=== PATIENT | female | born 1945 | race Caucasian/White ===

== ENCOUNTER 2022-12-27 14:03 | Outpatient (RCR) | payer MEDICARE, SELFPAY | END 2023-01-19 13:28 | disposition home or self-care (01) | LOC: PT 14:03 | PROVIDERS: Visit Provider Family Medicine | DX: S82.65XD Nondisplaced fracture of lateral malleolus of left fibula, subsequent encounter for closed fracture with routine healing (principal); Z98.890 Other specified postprocedural states | CPT/HCPCS: 97110; 97113; 97140; 97163 ==

== ENCOUNTER 2024-01-16 19:04 | Outpatient (REF) | payer MEDICARE, SELFPAY ==
[2024-01-20 13:07] LABS: Age Gdln ACOG Testing Note (.); Pap IG (Image Guided) Note (.)
== END 2024-01-16 19:05 | disposition home or self-care (01) ==
LOC: LAB 19:04
PROVIDERS: Visit Provider Obstetrics & Gynecology
DX: Z01.419 Encounter for gynecological examination (general) (routine) without abnormal findings (principal)
CPT/HCPCS: 88175

== ENCOUNTER 2024-04-23 13:01 | Outpatient (RCR) | payer MEDICARE, SELFPAY | END 2024-07-16 19:00 | disposition home or self-care (01) | LOC: PT 13:01 | PROVIDERS: PCP Nurse Practitioner; Visit Provider Nurse Practitioner | DX: G62.9 Polyneuropathy, unspecified (principal); Z91.81 History of falling | CPT/HCPCS: 97110; 97112; 97140; 97163 ==

== ENCOUNTER 2024-05-22 12:53 | Outpatient (OUT) | payer MEDICARE, SELFPAY ==
--- NOTE | 2024-05-22 12:56 | MM_ITS ---
Patient Name: LUIS MCNEAL MR#: [id number] : 1945 Exam Date: 05/22/2024 Ordering Doctor: SHAY VELIZ . RADIOLOGY REPORT PROCEDURE: MM TOMOSYNTHESIS SCREENING BI COMPARISON: MG MAMM SCREEN KAYLEEN W CAD, 08/20/2019. MG MAMM SCREEN 3D KAYLEEN CAD, 10/20/2022. INDICATIONS: Screening Calculator Name NCI Breast Cancer Risk Assessment Tool 5 Year Breast Cancer Risk 1.40% Lifetime Breast Cancer Risk 2.80% Personal Breast Cancer No Personal Ovarian Cancer No Treatments None Family Cancers Mother with lung cancer at age 77; Father with lung cancer at age 48. LOCATION: [facility] BREAST COMPOSITION: There are scattered areas of fibroglandular density. FINDINGS: DIAGNOSTIC CATEGORY 2--BENIGN FINDING. NO CHANGE FROM COMPARISON. Scattered benign-appearing calcifications are present. Scattered benign-appearing lymph nodes are present. RIGHT BREAST: No significant suspicious finding. LEFT BREAST: No significant suspicious finding. RECOMMENDATIONS: ROUTINE MAMMOGRAM AND CLINICAL EVALUATION IN 12 MONTHS. PLEASE NOTE: A NORMAL MAMMOGRAM DOES NOT EXCLUDE THE POSSIBILITY OF BREAST CANCER. A CLINICALLY SUSPICIOUS PALPABLE LUMP SHOULD BE BIOPSIED. Dictated by: Alexx Tran MD on 05/22/2024 at 15:02 Approved by: Alexx Tran MD on 05/22/2024 at 15:04
== END 2024-05-22 12:54 | disposition home or self-care (01) ==
LOC: MAMMO 12:53
PROVIDERS: PCP Nurse Practitioner; Visit Provider Nurse Practitioner
DX: Z12.31 Encounter for screening mammogram for malignant neoplasm of breast (principal); Z80.0 Family history of malignant neoplasm of digestive organs
CPT/HCPCS: 77063; 77067

== ENCOUNTER 2024-05-22 13:00 | Outpatient (OUT) | payer MEDICARE, SELFPAY ==
--- NOTE | 2024-05-22 13:13 | XR_ITS ---
The [address] [address] Patient Name: LUIS MCNEAL MRN: [id number] date: 1945 Sex: F Assigned Patient Location: [facility] Current Patient Location: [facility] Accession/Order Number: [id number] Exam Date: 05/22/2024 13:21 Report Date: 05/24/2024 12:56 At the request of: SHAY VELIZ Procedure: XR knee LT 4V PROCEDURE: XR hip LT min 2V, XR knee LT 4V HISTORY: Left Hip Pain COMPARISON: None. FINDINGS: BONES:Minimal narrowing of the joint space. No fracture, dislocation, articular surface irregularity. No significant periarticular degenerative osteophytes. SOFT TISSUES:No visible soft tissue swelling. EFFUSION:None visible. OTHER: Negative. XR/XR knee LT 4V IMPRESSION: 1. No acute bone abnormality or significant degenerative joint disease. 2. Minimal degenerative joint disease, especially considering patient's age. Electronically authenticated by: CRIS ALONZO Date: 05/24/2024 12:56
--- NOTE | 2024-05-22 13:13 | XR_ITS ---
The [place] [id number] Patient Name: LUIS MCNEAL MRN: [id number] date: 1945 Sex: F Assigned Patient Location: [facility] Current Patient Location: [facility] Accession/Order Number: [id number] Exam Date: 05/22/2024 13:21 Report Date: 05/24/2024 12:56 At the request of: SHAY VELIZ Procedure: XR hip LT min 2V PROCEDURE: XR hip LT min 2V, XR knee LT 4V HISTORY: Left Hip Pain COMPARISON: None. FINDINGS: BONES:Minimal narrowing of the joint space. No fracture, dislocation, articular surface irregularity. No significant periarticular degenerative osteophytes. SOFT TISSUES:No visible soft tissue swelling. EFFUSION:None visible. OTHER: Negative. XR/XR hip LT min 2V IMPRESSION: 1. No acute bone abnormality or significant degenerative joint disease. 2. Minimal degenerative joint disease, especially considering patient's age. Electronically authenticated by: CRIS ALONZO Date: 05/24/2024 12:56
== END 2024-05-22 13:01 | disposition home or self-care (01) ==
LOC: RAD 13:01
PROVIDERS: PCP Nurse Practitioner; Visit Provider Nurse Practitioner
DX: Z12.31 Encounter for screening mammogram for malignant neoplasm of breast (principal); Z80.0 Family history of malignant neoplasm of digestive organs; M25.552 Pain in left hip; M25.562 Pain in left knee; Z91.81 History of falling
CPT/HCPCS: 73502; 73564; 77063; 77067

== ENCOUNTER 2024-07-17 11:15 | Outpatient (RCR) | payer MEDICARE, SELFPAY | END 2024-07-18 13:13 | disposition home or self-care (01) | LOC: PT 11:15 | PROVIDERS: PCP Nurse Practitioner; Visit Provider Nurse Practitioner | DX: G62.9 Polyneuropathy, unspecified (principal); Z91.81 History of falling ==

== ENCOUNTER 2024-11-25 16:21 | Outpatient (OUT) | payer MEDICARE, SELFPAY ==
--- NOTE | 2024-11-25 | XR_ITS ---
[place] [address] Patient Name: LUIS MCNEAL MRN: [id number] date: 1945 Sex: F Assigned Patient Location: [facility] Current Patient Location: [facility] Accession/Order Number: [id number] Exam Date: 11/25/2024 17:01 Report Date: 11/25/2024 17:03 At the request of: SHAY VELIZ Procedure: XR chest 2V Plain film chest 2 view HISTORY: Cough and wheezing for one week COMPARISON: 05/28/2018 FINDINGS: SUPPORT DEVICES: None POSTSURGICAL CHANGES: None HEART: Within normal limits PULMONARY KATHRIN: Within normal limits MEDIASTINUM: Unremarkable LUNGS AND PLEURA: No acute lung process, pleural effusion or pneumothorax identified. BONY STRUCTURES: Mild scoliosis ADDITIONAL FINDINGS None XR/XR chest 2V IMPRESSION: No acute process. Impression dictated by: Rafal Cole M.D. 11/25/2024 5:03 PM Dictation Location: [email or web address] Electronically authenticated by: [id number] Y Date: 11/25/2024 17:03
== END 2024-11-25 16:22 | disposition home or self-care (01) ==
LOC: RAD 16:24
PROVIDERS: PCP Nurse Practitioner; Visit Provider Nurse Practitioner
DX: R06.2 Wheezing (principal); R05.9 Cough, unspecified
CPT/HCPCS: 71046

== ENCOUNTER 2025-07-07 14:31 | Outpatient (OUT) | payer MEDICARE, SELFPAY ==
--- OUTSIDE RECORDS SUMMARY | 2025-07-04 23:59 | XMS_ITS | Continuity of Care Document ---
Author Organization [facility] Address [address] [place] [id number] Care Team Providers Care Steel Turner Name Role Phone Anushka Delgado Primary Care Physician Encounter FT_JAIRO [id number] Date(s): 07/04/25 - 07/04/25 [facility] [address] [place] [phone]- Encounter Diagnosis BMI 24.0-24.9, adult(Discharge Diagnosis) - 07/04/25 Recurrent falls(Discharge Diagnosis) - 07/04/25 Head injury(Discharge Diagnosis) - 07/04/25 Impaired mobility(Discharge Diagnosis) - 07/04/25 Discharge Disposition: Home (Routine DC) Attending Physician: Anushka Rosales Encounter Type: Clinic Allergies, Adverse Reactions, Alerts SubstanceCriticalitySeverityReactionReaction SeverityStatusmorphineVomiting ActiveSeldaneUnknownActivesulfa drugsUnknownActive Treatment Plan Future Appointments Appointment Date:10/06/2025 10:40:00 AM Scheduled Provider:Anushka Rosales Location:[facility] Appointment Type: Open Appointment Date:04/08/2026 09:30:00 AM Scheduled Provider: Location:[facility] Appointment Type: Medicare Wellness Subsequent Functional Status 07/04/25 Symptomatic After Exposure to ContagionNoSymptomatic After Travel High-Risk Area NoDroplet, Contact Isolation VerificationN/AAirborne,Contact Isolation VerificationN/A Functional Status Assessment AssessmentAssessment ComponentResultEffective DateUnspecifed Functional Status AssessmentHistory of falling; immediate or within 3 months [Pratt Fall Scale]Yes 07/04/25Ambulatory aid [Pratt Fall Scale]Crutches, cane, vgulfe79/19/25 Functional Status Assessment AssessmentAssessment ComponentResultEffective DateUnspecifed Functional Status AssessmentHistory of falling; immediate or within 3 months [Rpatt Fall Scale]Yes 07/04/25Ambulatory aid [Pratt Fall Scale]Crutches, cane, tafpnl82/19/25 Immunizations Given and Recorded VaccineDateStatusRefusal ReasonRSV vaccine preF3, pmrcxoxmxrz06/1/24Recorded SARS-CoV-2 mRNA (tonavdeepnameran 5y-11y) vacRecordedinfluenza virus vaccine, inactivated04/11/24Recordedinfluenza virus vaccine, wlgnniykepl08/26/23Recorded influenza virus vaccine, khwtaxminch24/6/22Recordedpneumococcal 20-valent conjugate usgcpvk96/17/46TsjnrhxrNOOZ-LgA-7 (COVID-19) mRNAMUL.ORD![id number] TbyjuiceBHZH-CwU-0 (COVID-19) mRNA BNT-162b2 vax11/04/0664VcbvbyuvHDYX-UhC-1 (COVID-19) mRNA BNT-162b2 vax3/91PqncoxcjTIAH-EqH-2 (COVID-19) mRNA BNT-162b2 vax3Recorded Not Given VaccineDateStatusRefusal Reasoninfluenza virus vaccine, tfhqykrmwqx63/19/24Not GivenRefused by parent, guardian, or patient - reschedule 1Result Comment: covid 19 MRna LNp-S pfizer trus sucrose 2Result Comment: Britney wants to get immunization with spouse. Medications Albuterol (Eqv-ProAir HFA) 90 mcg/inh inhalation aerosol See Instructions, 8.5 EA, Refill(s) 0, INHALE 2 PUFFS EVERY 6 HOURS, [id number], 163, cm, 11/25/24 15:48:00 EDT, Height/Length Dosing, 70.4, kg, 11/25/24 15:48:00 EDT, Weight Dosing Start Date: 01/13/25 Status: Ordered Medication Dispense Status: Completed Quantity: 8.5 Unit: EA Total Allowed Fills: 1 Fills Dispensed: 0 alendronate 35 mg Tab See Instructions, TAKE 1 TABLET BY MOUTH EVERY 7 DAYS, # 12 tab(s), Refills(s) 3, Pharmacy: [facility], 163, cm, 04/07/25 10:27:00 EDT, Height/Length Dosing, 66.3, kg, 04/07/25 10:27:00 EDT,Weight Dosing Start Date: 06/09/25 Status: Ordered Medication Dispense Status: Completed Quantity: 12.0 Unit: tab(s) Total Allowed Fills: 1 Fills Dispensed: 0 Aleve 220 mg, Oral, q12hr, PRN as needed for pain, Refills(s) 0 Start Date: 04/05/23 Status: Ordered Medication Dispense Status: Completed Total Allowed Fills: 1 Fills Dispensed: 0 aspirin 81 mg Oral EC Tab 81 mg = 1 tab(s), Oral, Daily, Refills(s) 0 Start Date: 10/17/22 Status: Ordered Medication Dispense Status: Completed Total Allowed Fills: 1 Fills Dispensed: 0 atorvastatin 10 mg Tab 10 mg = 1 tab(s), Oral, Daily, # 90 tab(s), Refills(s) 3, Pharmacy: [facility], 163, cm, 04/07/25 10:27:00 EDT, Height/Length Dosing, 66.3, kg, 04/07/25 10:27:00 EDT, Weight Dosing Start Date: 04/08/25 Status: Ordered Medication Dispense Status: Completed Quantity: 90.0 Unit: tab(s) Total Allowed Fills: 4 Fills Dispensed: 0 Indications: Essential (primary) hypertension; Pure hypercholesterolemia, unspecified; Body mass index [BMI] 24.0-24.9, adult; Personal history of nicotine dependence; Other fatigue; Type 2 diabetes mellitus with other specified complication; Pure hypercholesterolemia, unspecified; bacitracin Top 500 units/g Oint 30 gram 1 annetta, Topical, QID, 30 gram, Refill(s) 0, apply to open wounds on arms, [facility]acy #[id number], 163, cm, 07/04/25 11:32:00 EST, Height/Length Dosing, 70.3, kg, 07/04/25 11:32:00 EST, Weight Dosing Start Date: 07/04/25 Status: Ordered Medication Dispense Status: Completed Quantity: 30.0 Unit: g Total Allowed Fills: 1 Fills Dispensed: 0 Indications: Other reduced mobility; Body mass index [BMI] 24.0-24.9, adult; Repeated falls; Unspecified injury of head, initial encounter; collagen collagen Start Date: 04/07/25 Status: Ordered Medication Dispense Status: Completed Total Allowed Fills: 1 Fills Dispensed: 0 duloxetine 30 mg Cap-DR 40 mg, Oral, Daily, Refills(s) 0 Start Date: 01/02/23 Status: Ordered Medication Dispense Status: Completed Total Allowed Fills: 1 Fills Dispensed: 0 ferrous sulfate 325 mg oral enteric coated tablet 325 mg = 1 tab(s), Oral, Daily, Refills(s) 0 Start Date: 01/02/23 Status: Ordered Medication Dispense Status: Completed Total Allowed Fills: 1 Fills Dispensed: 0 gabapentin 300 mg Cap 300 mg = 1 cap(s), Oral, Daily, # 180 cap(s), Refills(s) 0, Pharmacy: [facility], 163, cm,04/05/24 14:49:00 EDT, Height/Length Dosing, 75.9, kg, 04/05/24 14:49:00 EDT, Weight Dosing Start Date: 09/17/24 Status: Ordered Medication Dispense Status: Completed Quantity: 180.0 Unit: cap(s) Total Allowed Fills: 1 Fills Dispensed: 0 Handicap Placard Handicap Placard, See Instructions, 1 EA, 0, 5 years Dx. Impaired mobility, Supply Start Date: 07/04/25 Status: Ordered Medication Dispense Status: Completed Quantity: 1.0 Unit: EA Total Allowed Fills: 1 Fills Dispensed: 0 Indications: Other reduced mobility; hydrochlorothiazide-lisinopril 12.5 mg-20 mg Tab 1 tab(s), Oral, Daily, 90 tab(s), Refill(s) 3, [facility], 163, cm, 04/05/24 14:49:00 EDT,Height/Length Dosing, 75.9, kg, 04/05/24 14:49:00 EDT, Weight Dosing Start Date: 11/12/24 Status: Ordered Medication Dispense Status: Completed Quantity: 90.0 Unit: tab(s) Total Allowed Fills: 4 Fills Dispensed: 0 meloxicam 15 mg Tab 15 mg = 1 tab(s), Oral, Daily, # 30 tab(s), Refills(s) 0, [id number], cm, 11/19/24 10:09:00 EDT, Height/Length Dosing, 72.2, kg, 11/19/24 10:09:00 EDT, Weight Dosing Start Date: 11/19/24 Status: Ordered Medication Dispense Status: Completed Quantity: 30.0 Unit: tab(s) Total Allowed Fills: 1 Fills Dispensed: 0 Indications: Inflammatory polyarthropathy; Overweight; Wheezing; Cough, unspecified; Type 2 diabetes mellitus with other specified complication; Body mass index [BMI] 27.0-27.9, adult; Personal history of nicotine dependence; metformin 500 mg Tab 500 mg = 1 tab(s), Oral, BID, # 270 tab(s), Refills(s) 3, [id number] 163, cm, 02/10/25 8:49:00 EDT, Height/Length Dosing, 69, kg, 02/10/25 8:49:00 EDT, Weight Dosing Start Date: 02/11/25 Status: Ordered Medication Dispense Status: Completed Quantity: 270.0 Unit: tab(s) Total Allowed Fills: 4 Fills Dispensed: 0 metoprolol succinate 25 mg ER Tab 25 mg = 1 tab(s), Oral, Daily, # 90 tab(s), Refills(s) 4, Pharmacy: [facility], 163, cm, 04/05/24 14:49:00 EDT, Height/Length Dosing, 75.9, kg, 04/05/24 14:49:00 EDT, Weight Dosing Start Date: 11/18/24 Status: Ordered Medication Dispense Status: Completed Quantity: 90.0 Unit: tab(s) Total Allowed Fills: 5 Fills Dispensed: 0 Vitamin D3 5000 intl units (125 mcg) oral tab 125 mcg = 1 tab(s), Oral, Daily, # 90 tab(s), Refills(s) 0, Pharmacy: [facility], 163, cm,04/05/24 14:49:00 EDT, Height/Length Dosing, 75.9, kg, 04/05/24 14:49:00 EDT, Weight Dosing Start Date: 09/17/24 Status: Ordered Medication Dispense Status: Completed Quantity: 90.0 Unit: tab(s) Total Allowed Fills: 1 Fills Dispensed: 0 Problem List ConditionConfirmationCourseEffective DatesStatusHealth StatusInformantArthritis ConfirmedActiveCoughConfirmedActiveDizzinessConfirmedActiveFormer smoker ConfirmedActiveExcessive sweatingConfirmedActiveFatigueConfirmedActiveLeft hip painConfirmedActiveHypercholesterolemiaConfirmedActiveHypertensionConfirmed ActiveImpaired mobilityConfirmedActivePolyarthropathy, inflammatoryConfirmed ActiveHead injuryConfirmedActiveNeuropathyConfirmedActiveOsteoporosisConfirmed ActiveBMI 28.0-28.9,adultConfirmedResolvedLeft knee painConfirmedActiveWellness examinationConfirmedActiveRecurrent fallsConfirmedActiveMild recurrent major depressionConfirmedActiveType 2 diabetes mellitus with hypercholesterolemia1 ConfirmedActiveWheezingConfirmedActive 1linked DM with HLD per OP CDI policy. Procedures ProcedureDateRelated DiagnosisBody SiteStatusHistory of total hysterectomy 10/10/1841RlkanxwwmFuhynnpqarldYxuhxmeorGnwkqsatrlzucns3VovcoewxsBcrgqri cystectomy CompletedSpinal fusionCompleted 1bile duct surgery Vital Signs Most recent to oldest [Reference Range]:1Temperature Temporal Artery [36.3-37.8 DegC]36.3 DegC (07/04/25 11:22 AM)Peripheral Pulse Rate [60-100 bpm]78 bpm (07/04/25 11:22 AM)Respiratory Rate [14-20 br/min]18 br/min (07/04/25 11:22 AM)Blood Pressure [89-139/59-89 mmHg]118/80mmHg (07/04/25 11:22 AM)Blood Pressure LocationLeft arm (07/04/25 11:22 AM)SpO2 [89 %]99 % (07/04/25 11:22 AM) Social History Social History TypeResponseSmoking StatusFormer smoker, quit more than 30 days ago;Never; Type: Cigarettes; Concerns about tobacco use in household: No; Smoking Cessation Yes1, 2 entered on: 07/04/25Birth SexFemaleSex RepresentationFemale (finding) 1denies use. former smoker. 2denies use. former smoker. Reason for Referral Referred ByEffective DateStatusIndicationReasonReferred by: Anushka Rosales [id number]:21:29.000-05:00ActiveOther reduced mobility Body mass index [BMI] 24.0-24.9, adult Repeated falls Unspecified injury of head, initial encounter , pt was seen by Dr. Dominic Steen and would like a second opinion, send MRI result I will scan it into her chart Patient Care team information Care Team Personnel Name: Tarah Burton Position: [employer]: Claims Followup Rep (Devika) Member Role: [employer]: Claims Followup Rep (Commissioning Editor) Name: Anushka Rosales Position: FT Ambulatory - Primary Care - ANNETTA Member Role: Primary Care Physician Address: [address] [place] [address]- Telecom: Care Team Related Persons Name: MARCO MCNEAL Name: MARCO MCNEAL Insurance Providers Guarantor name: LUIS MCNEAL Health Plan Information #: 1 Payer: [facility] Payer Identifier: [id number] Member Number: [id number] Group Number: [id number] Subscriber Identifier: [id number] Relationship to Subscriber: self Coverage Type: MEDICARE Coverage Verification Date: 25 Telecom: Address: [facility] [address] [place] [address]
--- OUTSIDE RECORDS SUMMARY | 2025-07-07 14:34 | XMS_ITS | Clinical Summary ---
Author Organization [facility] Address [address] [place] [address] Care Team Providers Care Dial Brusher Name Role Phone Anushka Delgado NP Unavailable August Jorgensen MD Primary Care Provider [phone] Allergies Active AllergyReactionsCriticalityNoted DateCommentsCiprofloxacin Hcl01/20/2025 Other Reaction(s): Unknown MorphineGI lakrphzuffl60/26/2023 Other Reaction(s): Vomiting Sulfa OroocwjjdrqPomgcbo27/03/2021 Other Reaction(s): Unknown Other reaction(s): Unknown KgtnxetkfzdEufdHqk15/03/2021 Other Reaction(s): Not available, Unknown Other reaction(s): Unknown Tetanus Cfjpqj0512/23/2022 Other Reaction(s): Unknown Other reaction(s): Unknown Medications MedicationSigDispense QuantityRefillsLast FilledStart DateEnd DateStatus metFORMIN (Glucophage) 500 MG tablet every 12 (twelve) hours.Active lisinopril-hydroCHLOROthiazide 20-12.5 MG tablet 1 (one) time each day at the same time.Active hydroxychloroquine (Plaquenil) 200 MG tablet as directed OrallyActive gabapentin (Neurontin) 400 MG capsule 2 capsules every 12 (twelve) hours.Active DULoxetine (Cymbalta) [address] capsule 1 capsule 1 (one) time each day at the same time.Active alendronate (Fosamax) 35 MG tablet Take 35 mg by mouth every 7 (seven) days. Take in the morning with a full glass of water, on an empty stomach, and do not take anything else by mouth or lie down for the next 30 min.Active aspirin 81 MG chewable tablet 1 (one) time each day at the same timeActive diclofenac sodium 1 % gel as acvsobcr95/22/2024ctive Jardiance 10 MG Take 10 mg by mouth11/22/2024tive cholecalciferol (Vitamin D-3) 125 MCG (5000 UT) tablet Take 5,000 Units by mouth in the morning.Active ferrous sulfate 325 (65 Fe) MG EC tablet Take 325 mg by mouth01/02/2023ctive levoFLOXacin (Levaquin) 500 MG tablet TAKE 1 TABLET BY MOUTH EVERY DAY FOR 7 DAYS11/25/2024tive meloxicam (Mobic) 15 MG tablet Take 15 mg by mouth Daily11/19/2024tive Active Problems ProblemNoted DateDiagnosed DateH/O: qlbknypydowm45/07/2025Osteoporosis, post-mytbmhidei07/07/2025Hammer toe01/08/2023Other hammer toe(s) (acquired), left foot01/08/2023ain in limb01/08/2023Type 2 diabetes mellitus with peripheral pdcyfnbhps77/25/8527Nsctvlylvetqr62/25/2023 Family History Medical HistoryRelationNameCommentsCancerBrotherStrokeBrotherCancerFatherCancer MotherDiabetesMotherHeart diseaseMotherHypertensionMotherRelationNameStatus CommentsBrotherFatherDeceasedMotherDeceased Social History Tobacco UseTypesPacks/DayYears UsedDateSmoking Tobacco: FormerCigarettes Smokeless Tobacco: Never Tobacco Cessation:Counseling Given: Not Answered Comments:Quit smoking >10 years ago. Alcohol UseStandard Drinks/WeekCommentsYes0 (1 standard drink = 0.6 oz pure alcohol)1-2 drinks, monthly or less. caffeine intake: 3-4 cups per day. CommentsNoSex and Gender InformationValueDate RecordedSex Assigned at BirthNot on fileLegal UqhIogxcf65/15/2023 6:53 PM EDTGender IdentityNot on fileSexual OrientationNot on file Last Filed Vital Signs Vital SignReadingTime TakenCommentsBlood Mwzaofxz820/7607 1:22 PM EDT Pulse--Temperature--Respiratory Rate--Oxygen Saturation--Inhaled Oxygen Concentration--Qeqmnk76.4 kg (153 lb)01/20/2025 1:22 PM YNMDoswba372.1 cm (5' 5 )01/16/2024 1:20 PM EDTBody Mass Index25.4607 1:20 PM EDT Plan of Treatment DateTypeDepartmentCare Team (Latest Contact Info)Rcqretbtzts91/13/2026 1:00 PM EDTOffice Visit [facility] [address] [place] [address] Josh Sheehan, DO [address] [place] [address] Health MaintenanceDue DateLast DoneCommentsCOVID-19 Vaccine ( season) 5004/11/2024, 04/11/2024, 05/11/2023, Additional history existsInfluenza Vaccine (#1)5004/11/2024, 05/11/2023, 2Pneumococcal Vaccine: 65+ KgonmQtyzmdqaj89/17/0790DdkptjwxzJpkdpjdqmhqj52/06/2023 Procedures Procedure NamePriorityDate/TimeAssociated DiagnosisCommentsBI MAMMOGRAM SCREENING TOMOSYNTHESIS XVUMKIWVZVkqndsl55/06/2023 from Last 3 Months or Most Recently Relevant to Health Maintenance Results * Bilateral screening mammogram with tomosynthesis (10/20/2022)Anatomical Region LateralityModalityBreastBilateralMammographySpecimen (Source)Anatomical Location / LateralityCollection Method / VolumeCollection TimeReceived Time Narrative 10/20/2022 12:00 AM EDT PERFORMED AT [facility] LOCATION:[facility] Patient: ? FREDIS Galeana. ? Exam Date: ? 10/20/2022 : ? 1945 ?Gender:F ? Ordering : ? DR SOILA GIPSON . ? Admission #: ? [id number] Family : ?Order #: ? [id number] ? CLICK HERE TO VIEW EXAM RADIOLOGY REPORT PROCEDURE: ? MAMMOGRAM SCREENING 3D BILATERAL CAD COMPARISON: ? MG MAMM SCREEN KAYLEEN W CAD 08/11/2017. ??MG MAMM SCREEN KAYLEEN W CAD 08/20/2019. INDICATIONS: ? Screening mammography Calculator Name ? NCI Breast Cancer Risk Assessment Tool 5 Year Breast Cancer Risk ? 1.40% Lifetime Breast Cancer Risk ? 3.20% Personal Breast Cancer ?No Personal Ovarian Cancer ? No Treatments ? None Family Cancers ? Mother with lung cancer at age 77; Father with lung cancer at age 48. LOCATION: ? [facility] BREAST COMPOSITION: ? Scattered areas fibroglandular density. FINDINGS: DIAGNOSTIC CATEGORY 2--BENIGN FINDING. NO CHANGE FROM COMPARISON. Scattered benign-appearing calcifications are present. ??Scattered benign-appearing lymph nodes are present. RIGHT BREAST: ??No significant suspicious finding. LEFT BREAST: ??No significant suspicious finding. ??Stable focal asymmetry upper outer quadrant. RECOMMENDATIONS: ROUTINE MAMMOGRAM AND CLINICAL EVALUATION IN 12 MONTHS. PLEASE NOTE: ??A NORMAL MAMMOGRAM DOES NOT EXCLUDE THE POSSIBILITY OF BREAST CANCER. ??A CLINICALLY SUSPICIOUS PALPABLE LUMP SHOULD BE BIOPSIED. Dictated by: Alexx Tran MD on 10/20/2022 at 14:19 Approved by: Alexx Tran MD on 10/20/2022 at 14:23 Procedure Note CONVERSION, GENERIC - 01/20/2023 PERFORMED AT [facility] LOCATION:[address] Patient: FREDIS El Exam Date: 10/20/2022 : 1945 Gender:F Ordering : DR SOILA GIPSON . Admission #: [id number] Family : Order #: [id number] CLICK HERE TO VIEW EXAM RADIOLOGY REPORT PROCEDURE: MAMMOGRAM SCREENING 3D BILATERAL CAD COMPARISON: MG MAMM SCREEN KAYLEEN W CAD 08/11/2017. MG MAMM SCREEN KAYLEEN W CAD 08/20/2019. INDICATIONS: Screening mammography Calculator Name NCI Breast Cancer Risk Assessment Tool 5 Year Breast Cancer Risk 1.40% Lifetime Breast Cancer Risk 3.20% Personal Breast Cancer No Personal Ovarian Cancer No Treatments None Family Cancers Mother with lung cancer at age 77; Father with lungcancer at age 48. LOCATION: [facility] BREAST COMPOSITION: Scattered areas fibroglandular density. FINDINGS: DIAGNOSTIC CATEGORY 2--BENIGN FINDING. NO CHANGE FROM COMPARISON. Scattered benign-appearing calcifications are present. Scattered benign-appearing lymph nodes are present. RIGHT BREAST: No significant suspicious finding. LEFT BREAST: No significant suspicious finding. Stable focal asymmetryupper outer quadrant. RECOMMENDATIONS: ROUTINE MAMMOGRAM AND CLINICAL EVALUATION IN 12 MONTHS. PLEASE NOTE: A NORMAL MAMMOGRAM DOES NOT EXCLUDE THE POSSIBILITY OFBREAST CANCER. A CLINICALLY SUSPICIOUS PALPABLE LUMP SHOULD BE BIOPSIED. Dictated by: Alexx Tran MD on 10/20/2022 at 14:19 Approved by: Alexx Tran MD on 10/20/2022 at 14:23 Authorizing ProviderResult TypeResult StatusGregory Geoffrey ABBOTTIMSundar BI PROCEDURES Final Result from Last 3 Months or Most Recently Relevant to Health Maintenance Insurance * Guarantor: Alvarado Valdivia TypeRelation to PatientDate of BirthPhone Billing AddressPersonal/AdudtwZgrl[birth year][address] [address] Care Teams Team MemberRelationshipSpecialtyStart DateEnd Date August Jorgensen MD [address] [place] [address] PCP - GeneralFamily Medicine04/01/24 Anushka Delgado NP [address] [place] [address] Referring PhysicianFamily Medicine04/01/24
--- NOTE | 2025-07-07 14:40 | CT_ITS ---
The [address] [address] Patient Name: LUIS MCNEAL MRN: [id number] date: 1945 Sex: F Assigned Patient Location: CT Current Patient Location: [facility] Accession/Order Number: [id number] Exam Date: 07/07/2025 14:47 Report Date: 07/08/2025 10:17 At the request of: SHAY VELIZ Procedure: CT head/brain wo con CT BRAIN WITHOUT CONTRAST: CLINICAL HISTORY: Repeated Falls, Unspecified Injury To Head and face COMPARISON: None TECHNIQUE: Contiguous axial unenhanced images were obtained through the brain. This CT exam was performed using one or more following dose reduction techniques: Automated exposure control, adjustment of the mA and/or kV according to patient size, or use of iterative reconstruction technique. FINDINGS: There is mild generalized atrophy. The ventricles are within normal limits for size and position. Physiologic basal ganglia calcifications are noted. Minor microvascular changes are noted. There are no additional areas of abnormal attenuation. There is no hemorrhage, mass effect or extra-axial collections. The calvarium is intact. There is fluid and/or mucosal thickening at the left sphenoid sinus. The remaining imaged paranasal sinuses and mastoid air cells are clear. Carotid siphon plaque is seen. CT/CT head/brain wo con IMPRESSION: AGE-RELATED CHANGES. NO ACUTE INTRACRANIAL TRAUMA. Impression dictated by: Rebekah Bryant M.D. 07/08/2025 10:17 AM Dictation Location[facility] Electronically authenticated by: [id number] Y Date: 07/08/2025 10:17
== END 2025-07-07 14:32 | disposition home or self-care (01) ==
LOC: CT 14:32
PROVIDERS: PCP Nurse Practitioner; Visit Provider Nurse Practitioner
DX: R29.6 Repeated falls (principal); S09.90XA Unspecified injury of head, initial encounter; Z68.24 Body mass index [BMI] 24.0-24.9, adult
CPT/HCPCS: 70450

== ENCOUNTER 2025-07-09 10:58 | Outpatient (OUT) | payer MEDICARE, SELFPAY ==
--- OUTSIDE RECORDS SUMMARY | 2025-07-09 11:00 | XMS_ITS | Clinical Summary ---
Author Organization [facility] Address [address] [place] [address] Care Team Providers Care Molder Sweep Name Role Phone Anushka Delgdao NP Unavailable August Jorgensen MD Primary Care Provider [phone] Allergies Active AllergyReactionsCriticalityNoted DateCommentsCiprofloxacin Hcl01/20/2025 Other Reaction(s): Unknown MorphineGI cqqtqisfaun97/26/2023 Other Reaction(s): Vomiting Sulfa CuuckqceyveTvpvwwk56/03/2021 Other Reaction(s): Unknown Other reaction(s): Unknown FvommiavvnvGngwMos90/03/2021 Other Reaction(s): Not available, Unknown Other reaction(s): Unknown Tetanus Cbkgjr3412/23/2022 Other Reaction(s): Unknown Other reaction(s): Unknown Medications [...] timeActive diclofenac sodium 1 % gel as /22/2024ctive Jardiance 10 MG Take 10 mg by [...] mouth Daily11/19/2024tive Active Problems ProblemNoted DateDiagnosed DateH/O: dsqbdhalyxcv58/07/2025Osteoporosis, post-cbmnublsmi28/07/2025Hammer toe01/08/2023Other hammer toe(s) (acquired), left foot01/08/2023ain in limb01/08/2023Type 2 diabetes mellitus with peripheral epqetzrmcy51/25/1921Krukkxrdimuxg30/25/2023 Family History Medical HistoryRelationNameCommentsCancerBrotherStrokeBrotherCancerFatherCancer MotherDiabetesMotherHeart diseaseMotherHypertensionMotherRelationNameStatus CommentsBrotherFatherDeceasedMotherDeceased Social History Tobacco UseTypesPacks/DayYears UsedDateSmoking Tobacco: FormerCigarettes Smokeless Tobacco: Never Tobacco Cessation:Counseling Given: Not Answered Comments:Quit smoking >10 years ago. Alcohol UseStandard Drinks/WeekCommentsYes0 (1 standard drink = 0.6 oz pure alcohol)1-2 drinks, monthly or less. caffeine intake: 3-4 cups per day. CommentsNoSex and Gender InformationValueDate RecordedSex Assigned at BirthNot on fileLegal JfrDijruy43/15/2023 6:53 PM EDTGender IdentityNot on fileSexual OrientationNot on file Last Filed Vital Signs Vital SignReadingTime TakenCommentsBlood Fvnsmzrw340/7607 1:22 PM EDT Pulse--Temperature--Respiratory Rate--Oxygen Saturation--Inhaled Oxygen Concentration--Bjyxoz89.4 kg (153 lb)01/20/2025 1:22 PM GLXIajhky669.1 cm (5' 5 )01/16/2024 1:20 PM EDTBody Mass Index25.4607 1:20 PM EDT Plan of Treatment DateTypeDepartmentCare Team (Latest Contact Info)Arzmskrmcpq71/13/2026 1:00 PM EDTOffice Visit [facility] [address] [place] [id number] Josh Sheehan, DO [address] [place] [address] Health MaintenanceDue DateLast DoneCommentsInfluenza Vaccine (#1)03/17/2025 04/11/2024, 05/11/2023, 04/21/2022neumococcal Vaccine: 65+ YearsCompleted 06/02/20229327GpuhyhjycHbdidxrovzjc94/06/2023 Procedures Procedure NamePriorityDate/TimeAssociated DiagnosisCommentsBI MAMMOGRAM SCREENING TOMOSYNTHESIS HJAZTEFYBSjxkgoy83/06/2023 from Last 3 Months or Most Recently Relevant to Health Maintenance Results * Bilateral screening mammogram with tomosynthesis (10/20/2022)Anatomical Region LateralityModalityBreastBilateralMammographySpecimen (Source)Anatomical Location / LateralityCollection Method / VolumeCollection TimeReceived Time Narrative 10/20/2022 12:00 AM EDT PERFORMED AT [facility] LOCATION:[facility] Patient: ? FREDIS El ? Exam Date: ? 10/20/2022 : ? 1945 ?Gender:F ? Ordering : ? DR SOILA HALE . ? Admission #: ? [id number] Family : ?Order #: ? [id number] ? CLICK HERE TO VIEW EXAM RADIOLOGY [...] cancer at age 50. LOCATION: ? [facility] BREAST COMPOSITION: ? Scattered areas fibroglandular [...] Note CONVERSION, GENERIC - 01/20/2023 PERFORMED AT [facility] LOCATION:[address] Patient: FREDIS El Exam Date: 10/20/2022 : 1945 Gender:F Ordering : DR SOILA HALE . Admission #: [id number] Family : Order #: [id number] CLICK HERE TO VIEW EXAM RADIOLOGY REPORT [...] with lungcancer at age 50. LOCATION: [facility] BREAST COMPOSITION: Scattered areas fibroglandular density. [...] on 10/20/2022 at 14:23 Authorizing ProviderResult TypeResult StatusGregabel Hale MDIMSundar BI PROCEDURES Final Result from Last 3 Months or Most Recently Relevant to Health Maintenance Insurance Care Teams Team MemberRelationshipSpecialtyStart DateEnd Date August Jorgensen MD [address] [place] [id number] PCP - GeneralFamily Medicine04/01/24 Anushka Delgado NP [address] [place] [address] [phone] Referring PhysicianFamily Medicine04/01/24
--- OUTSIDE RECORDS SUMMARY | 2025-07-09 11:00 | XMS_ITS | Clinical Summary ---
Author Organization [facility] Address [id number] [address] [place] [address] Care Team Providers Care Muff Winder Name Role Phone August Jorgensen MD Primary Care Provider [phone] Allergies Active AllergyReactionsCriticalityNoted OkwdGuuwqqxjGyvilbx91/03/2021 Other reaction(s): Unknown Sulfa (Sulfonamide Antibiotics)06/18/2021 Other reaction(s): Unknown Tetanus Xpkfyu5812/23/2022 Other reaction(s): Unknown Medications MedicationSigDispense QuantityRefillsLast FilledStart DateEnd DateStatus metFORMIN (GLUCOPHAGE) 500 mg tablet Active lisinopril-hydroCHLOROthiazide (PRINZIDE,ZESTORETIC) 20-12.5 mg per tablet 05/16/2021ctive metoprolol succinate XL (TOPROL-XL) 25 mg 24 hr tablet 05/30/2021ctive aspirin 81 mg chewable tablet daily.Active hydrOXYchloroQUINE (PLAQUENIL) 200 mg tablet Take by mouth daily.Active cholecalciferol, vitamin D3, 5,000 units tablet Take 1 tablet (5,000 Units total) by mouth in the morning.Active alendronate (FOSAMAX) 70 mg tablet Take 1 tablet (70 mg total) by mouth every 7 days. In a.m. with water on empty stomach, nothing else by mouth and remain upright for 30minActive JARDIANCE 10 mg tablet tablet Take 1 tablet (10 mg total) by mouth.5Active DULoxetine 40 mg capsule,delayed release(DR/EC) Indications:Peripheral polyneuropathyTAKE 40 MG BY MOUTH IN THE MORNING 90 capsule 5Active gabapentin (NEURONTIN) 300 mg capsule Indications:Peripheral polyneuropathy,RLS (restless legs syndrome)TAKE 1 CAPSULE BY MOUTH EVERY NIGHT 90 capsule 5Active Active Problems ProblemNoted DateDiagnosed DatePeripheral rsmuylllemlqdv72/03/2021ensory ataxia 06/18/2021LS (restless legs syndrome)06/18/2021ciatica of left side06/18/2021 Weakness of left lower /03/2021 Family History Medical HistoryRelationNameCommentsCancerBrotherDiabetesBrotherCancerFather DiabetesMaternal GrandmotherCancerMotherDiabetesMotherRelationNameStatusComments BrotherFatherDeceasedMaternal GrandmotherMotherDeceased Social History Tobacco UseTypesPacks/DayYears UsedDateSmoking Tobacco: NeverSmokeless Tobacco: NeverAlcohol UseStandard Drinks/WeekCommentsYes1 (1 standard drink = 0.6 oz pure alcohol)rarePHQ-2AnswerDate RecordedTotal Ypesb9325ChildcareAnswerDate ObrjtzotVefqlyqngCtqzprf89/13/2019EmploymentAnswerDate RecordedEmploymentUnknown 12/27/2018Hunger ScreeningAnswerDate RecordedWithin the past 12 months we worried whether our food would run out before we got money to buy more.Never True01/07/2025Within the past 12 months the food we bought just didn't last and we didn't have money to get more.Never True01/07/2025Purpose - LifeAnswerDate RecordedPurpose and direction in nwhlFfrctng05/11/2021CommentsNoSex and Gender InformationValueDate RecordedSex Assigned at BirthNot on fileLegal Sex Mmjcse8210/03/2018 5:35 PM EDTGender IdentityNot on fileSexual OrientationNot on file Last Filed Vital Signs Vital SignReadingTime TakenCommentsBlood Txzmnmrw387/7506 11:40 AM EDT Aifgx822901/07/2025 11:40 AM PUYOqpkwtxzubi68.6 ??C (97.9 ??F)06/30/2023 1:01 PM ESTRespiratory Pizk402108/31/2022 1:01 PM ESTOxygen Saturation--Inhaled Oxygen Concentration--Jvrnjz89.4 kg (164 lb)01/07/2025 11:40 AM NZMKldxlt150.1 cm (5' 5 )01/07/2025 11:40 AM EDTBody Mass Index27.29001/07/2025 11:40 AM EDT Plan of Treatment DateTypeDepartmentCare Team (Latest Contact Info)Btywlqidsxf64/30/2025 9:30 AM ESTOffice Visit [facility] [place] [address] [place] [address] Dominic Steen, MALCOLM [address] [facility] [address] [place] [address] Health MaintenanceDue DateLast DoneCommentsDTaP,Tdap and Td Vaccines (1 - Tdap) 11/19/1966Zoster (Shingles) Vaccine (1 of 2)11/19/1997Fall Risk Screening 11/19/2012COVID-19 Vaccine ( - season)5004/11/2024, 05/11/2023, 04/21/2022, Additional history existsInfluenza Srafaur01, 05/11/2023, 04/21/2022epression Gzefismsf98/Tobacco Screening RSV ( or age 60+ yrs)Hrqcfoiek89/01/2024 Medical Devices Not on file Insurance Care Teams Team MemberRelationshipSpecialtyStart DateEnd Date August Jorgensen MD [address] [place], [place] [phone] PCP - GeneralFamily Irskxilq58/28/23 Dr Jorgensen [address] [facility] [id number] 12/23/22
--- NOTE | 2025-07-09 11:22 | MM_ITS ---
Patient Name: LUIS MCNEAL MR#: [id number] : 1945 Exam Date: 07/09/2025 Ordering Doctor: DR JOANNA SHELTON . RADIOLOGY REPORT PROCEDURE: MM TOMOSYNTHESIS SCREENING BI COMPARISON: MM TOMOSYNTHESIS SCREENING BI, 05/22/2024. MG MAMM SCREEN 3D KAYLEEN CAD, 10/20/2022. MG MAMM SCREEN KAYLEEN W CAD, 08/20/2019. MG MAMM KAYLEEN SCRN W CAD DIG, 05/24/2005. INDICATIONS: Screening Calculator Name NCI Breast Cancer Risk Assessment Tool 5 Year Breast Cancer Risk 1.40% Lifetime Breast Cancer Risk 2.70% Personal Breast Cancer No Personal Ovarian Cancer No Treatments None Family Cancers Mother with lung cancer at age 77; Father with lung cancer at age 48. LOCATION: [facility] BREAST COMPOSITION: There are scattered areas of fibroglandular density. FINDINGS: DIAGNOSTIC CATEGORY 1--NEGATIVE. RIGHT BREAST: No significant suspicious finding. LEFT BREAST: No significant suspicious finding. RECOMMENDATIONS: ROUTINE MAMMOGRAM AND CLINICAL EVALUATION IN 12 MONTHS. Dictated by: Ranyd Woods MD on 07/09/2025 at 13:06 Approved by: Randy Woods MD on 07/09/2025 at 13:07
== END 2025-07-09 10:59 | disposition home or self-care (01) ==
LOC: MAMMO 10:58
PROVIDERS: PCP Nurse Practitioner; Visit Provider Obstetrics & Gynecology
DX: M81.0 Age-related osteoporosis without current pathological fracture (principal); Z12.31 Encounter for screening mammogram for malignant neoplasm of breast; Z80.1 Family history of malignant neoplasm of trachea, bronchus and lung; M85.88 Other specified disorders of bone density and structure, other site
CPT/HCPCS: 77063; 77067; 77080